=== PATIENT | male | born 1955 | race African-American/Black ===

== ENCOUNTER 2020-06-16 01:59 | Emergency (ER) | payer MEDICARE ==
[~2020-06-16] VITALS: Ht 180.3 cm; Wt 131.0 kg
--- NOTE | 2020-06-16 02:53 | ED.ADGEN ---
Past Medical History Past Medical History: Hypertension Past Surgical History: Knee Replacement, Other Additional Past Surgical Histo: sinus surgery Smoking Status: Never Smoker Alcohol Use: None Drug Use: None General Adult EDM: Chief Complaint: OTHER COMPLAINTS HPI: HPI: Patient is a 65 year old male coming in for congestion in his throat and chest that has been going on for about 8 months. Patient thinks it started after he got a flu or pneumonia vaccine in September. Patient has not seen his primary care provider for this and has not tried any [id number] medications. States he came in tonight because he was having difficulty sleeping due to the congestion. Review of Systems: Review of Systems: Constitutional: Denies fever or chills. [] Eyes: Denies change in visual acuity. [] HENT: Denies nasal congestion or sore throat. [] Throat and chest congestion Respiratory: Denies cough or shortness of breath. [] Cardiovascular: Denies chest pain or edema. [] GI: Denies abdominal pain, nausea, vomiting, bloody stools or diarrhea. [] : Denies dysuria. [] Musculoskeletal: Denies back pain or joint pain. [] Integument: Denies rash. [] Neurologic: Denies headache, focal weakness or sensory changes. [] Endocrine: Denies polyuria or polydipsia. [] Lymphatic: Denies swollen glands. [] Psychiatric: Denies depression or anxiety. [] Current Medications: Current Medications Medications (Trade) Dose Ordered Sig/Yanet Start Time Stop Time Status Last Admin Dose Admin Guaifenesin (Mucinex) 600 mg 1X ONCE 06/16/20 03:15 06/16/20 03:16 DC 06/16/20 03:18 600 MG Hydroxyzine HCl (Vistaril Im) 25 mg 1X ONCE 06/16/20 03:15 06/16/20 03:16 DC 06/16/20 03:17 25 MG Allergies: Allergies: Allergies Coded Allergies Type Severity Reaction Last Updated Verified No Known Drug Allergies 10/05/14 No Physical Exam: PE: Constitutional: Well developed, well nourished, no acute distress, non-toxic appearance. [] HENT: Normocephalic, atraumatic, bilateral external ears normal, oropharynx moist, no oral exudates, nose normal. [] Eyes: PERRLA, EOMI, conjunctiva normal, no discharge. [] Neck: Normal range of motion, no tenderness, supple, no stridor. [] Cardiovascular:Heart rate regular rhythm, no murmur [] Lungs & Thorax: Bilateral breath sounds clear to auscultation [] Abdomen: Bowel sounds normal, soft, no tenderness, no masses, no pulsatile masses. [] Skin: Warm, dry, no erythema, no rash. [] Back: No tenderness, no CVA tenderness. [] Extremities: No tenderness, no cyanosis, no clubbing, ROM intact, no edema. [] Neurologic: Alert and oriented X 3, normal motor function, normal sensory function, no focal deficits noted. [] Psychologic: Affect normal, judgement normal, mood normal. [] Current Patient Data: Vital Signs: Vital Signs Date Time Temp Pulse Resp B/P (MAP) Pulse Ox O2 Delivery O2 Flow Rate FiO2 06/16/20 02:00 97.4 68 18 142/74 (96) 96 Room Air 97.4 EKG: EKG: [] Heart Score: Risk Factors: Risk Factors: DM, Current or recent (<one month) smoker, HTN, HLP, family history of CAD, obesity. Risk Scores: Score 0 - 3: 2.5% MACE over next 6 weeks - Discharge Home Score 4 - 6: 20.3% MACE over next 6 weeks - Admit for Clinical Observation Score 7 - 10: 72.7% MACE over next 6 weeks - Early Invasive Strategies Radiology/Procedures: Radiology/Procedures: PROCEDURE: CHEST PA & LATERAL INDICATION: Reason: pna / Spl. Instructions: / History: COMPARISON: February 2006 FINDINGS: 2 view of chest obtained. Cardiac silhouette is near the upper limits of normal in size and similar to prior. Repeat demonstration of a BB projecting over the left side of the chest. Degenerative changes of the spine. No definite focal airspace consolidation. IMPRESSION: * No definite focal airspace consolidation. [] Course & Med Decision Making: Course & Med Decision Making Pertinent Labs and Imaging studies reviewed. (See chart for details) [] Dragon Disclaimer: Dragon Disclaimer: This electronic medical record was generated, in whole or in part, using a voice recognition dictation system. Departure Departure Impression: Primary Impression: Congestion of upper respiratory tract Disposition: 01 DC HOME SELF CARE/HOMELESS Condition: STABLE Referrals: SHIVANI ALFONSO MD (PCP) Additional Instructions: May take guaifenesin, dextromethorphan, Benadryl or other antihistamines for congestion. If taking guaifenesin take with increased amounts of water. Scripts Azelastine/Fluticasone (DYMISTA NASAL SPRAY) 23 Gm [place].pump 1 SPRAY NS BID for congestion, #23 GM 6 Refills Prov: ANASTASIA PARKER MD 06/16/20 ANASTASIA PARKER MD Jun 16, 2020 02:53
[2020-06-16] MEDS ORDERED: AZEL23SP NS (03:00)
[2020-06-16] MEDS ORDERED: hydrOXYzine IM 50 MG/ML VIAL IM ONE (03:15)
--- NOTE | 2020-06-16 03:27 | RAD ---
INDICATION: Reason: pna / Spl. Instructions: / History: COMPARISON: February 2006 FINDINGS: 2 view of chest obtained. Cardiac silhouette is near the upper limits of normal in size and similar to prior. Repeat demonstration of a BB projecting over the left side of the chest. Degenerative changes of the spine. No definite focal airspace consolidation. IMPRESSION: * No definite focal airspace consolidation. Electronically signed by: Master Kaye MD (06/16/2020 3:24 AM) [id number]
[2020-06-16 04:08] VITALS: BP 142/69
== END 2020-06-16 04:11 | disposition home or self-care (01) ==
LOC: ER 01:59
DX: R09.81 Nasal congestion (principal); I10 Essential (primary) hypertension
CPT/HCPCS: 71046; 96372; 99285; J3410

== ENCOUNTER → 2020-06-20 | Outpatient (CLI) | payer MEDICARE ==
[2020-06-16 04:08] VITALS: BP 142/69
[~2020-06-20] MED LIST: AZEL23SP NS
--- NOTE | 2020-06-20 11:27 | CARD ---
MR#: [id number] Date of Study: 06/20/2020 Ordering Physician: JOLIE MAGAÑA, Referring Physician: JOLIE MAGAÑA Tech: Gill Gray RDCS APPROVED REPORT EXAM: Two-dimensional and M-mode echocardiogram with Doppler and color Doppler. Other Information Quality : Good INDICATION Palpitations 2D DIMENSIONS RVDd3.3 (2.9-3.5cm)Left Atrium(2D)4.2 (1.6-4.0cm) IVSd1.1 (0.7-1.1cm)Aortic Root(2D)3.2 (2.0-3.7cm) LVDd5.6 (3.9-5.9cm)LVOT Diameter2.2 (1.8-2.4cm) PWd1.1 (0.7-1.1cm)LVDs2.8 (2.5-4.0cm) FS (%) 30.0 %SV125.5 ml LVEF(%)60.0 (>50%) Aortic Valve AoV Peak Ronaldo.153.9cm/sAoV VTI27.2cm AO Peak GR.9.5mmHgLVOT Peak Ronaldo.107.5cm/s AO Mean GR.4mmHgAVA (VMAX)2.60cm2 TORI (VTI)3.40cm2 Mitral Valve MV E Uwjzotrj76.9cm/sMV DECEL [id number] MV A Pdsjafyv54.9cm/sE/A Ratio0.9 Pulmonary Vein S1 Qxtzrkqk43.1cm/sD2 Xvrmadcs07.4cm/s LEFT VENTRICLE The left ventricle is normal size. There is normal left ventricular wall thickness. The left ventricu lar systolic function is normal and the ejection fraction is within normal range. The Ejection Fracti on is 55-60%. There is normal LV segmental wall motion. Transmitral Doppler flow pattern is Grade I-a bnormal relaxation pattern. RIGHT VENTRICLE The right ventricle is normal size. The right ventricular systolic function is normal. ATRIA The left atrium is mildly dilated. The right atrium size is normal. The interatrial septum is intact with no evidence for an atrial septal defect or patent foramen ovale as noted on 2-D or Doppler imagi ng. AORTIC VALVE The aortic valve is normal in structure and function. Doppler and Color Flow revealed no significant aortic regurgitation. There is no significant aortic valvular stenosis. MITRAL VALVE The mitral valve is calcified but opens well. There is no evidence of mitral valve prolapse. There is no mitral valve stenosis. Doppler and Color Flow revealed no mitral valve regurgitation noted. TRICUSPID VALVE The tricuspid valve is normal in structure and function. Doppler and Color Flow revealed no tricuspid valve regurgitation noted. There is no tricuspid valve stenosis. PULMONIC VALVE The pulmonic valve is not well visualized. Doppler and Color Flow revealed no pulmonic valvular regur gitation. There is no pulmonic valvular stenosis. GREAT VESSELS The aortic root is normal in size. The ascending aorta is normal in size. The IVC was not visualized. PERICARDIAL EFFUSION There is no evidence of significant pericardial effusion. Critical Notification Critical Value: No <Conclusion> The left ventricle is normal size. The left ventricular systolic function is normal and the ejection fraction is within normal range. The Ejection Fraction is 55-60%. Doppler and Color Flow revealed no significant aortic regurgitation. There is no significant aortic valvular stenosis. Doppler and Color Flow revealed no mitral valve regurgitation noted. Doppler and Color Flow revealed no tricuspid valve regurgitation noted. Signed by : Robert Soares MD Electronically Approved : 06/20/2020 11:27:33
== END ==
LOC: ECHO 08:53
PROVIDERS: ATTEND Internal Medicine Cardiovascular Disease
DX: I34.0 Nonrheumatic mitral (valve) insufficiency (principal)
CPT/HCPCS: 93306